=== PATIENT | male | born 1950 | race Caucasian/White ===

== ENCOUNTER 2018-04-06 09:00 | Inpatient (IN) ==
[2018-04-06 12:40] LABS: Basophils # (Auto) 0 K/mcL (0.0-0.3); Basophils % (Auto) 0.3 % (0.0-2.0); Eosinophils # (Auto) 0.3 K/mcL (0.0-0.7); Granulocytes % (Auto) 71.8 % (38.0-78.0); Lymphocytes # (Auto) 1.3 K/mcL (1.5-4.8); Lymphocytes % (Auto) 15.2 % (15.5-49.0); Mean Cell Volume 90.3 fL (80.0-100.0); Mean Corpuscular HGB Conc 33.3 g/dL (31.0-36.0); Monocytes # (Auto) 0.7 K/mcL (0.1-0.9); Monocytes % (Auto) 8.7 % (1.0-12.0); Platelet Count 208 K/mcL (140-440); RBC 5.27 M/mcL (4.50-5.90); Red Cell Distribution Width 14.2 % (11.5-14.5)
[2018-04-06 13:13] LABS: Appearance,Urine CLEAR; Bilirubin,Urine NEG (NEG); Color,Urine YELLOW; Glucose,Urine (UA) NEGATIVE (NEG); Leukocyte Esterase,Urine NEG /uL (NEG); Protein,Urine NEG (NEG); Specific Gravity,Urine 1.015 (1.000-1.035); Urine Blood NEG mg/dL (<0.03); Urobilinogen,Urine NEG (NEG)
[2018-04-06 13:19] LABS: Blood Urea Nitrogen 15 mg/dl (8-23)
[2018-04-10] MEDS ORDERED: ceFAZolin 1 GM VIAL IV SCH (06:00)
[2018-04-10] MEDS ORDERED: oxyCODONE 10 MG TAB.ER.12H PO SCH (06:00)
[2018-04-10] MEDS ORDERED: PREGABALIN 75 MG CAPSULE PO SCH (06:00)
[2018-04-10] MEDS ORDERED: 0.9 % SODIUM CHLORIDE 9 ML, KETOROLAC 30 MG, ROPIVACAINE HCL/PF 49.5 ML, EPINEPHrine 0.... IJ SCH (06:00)
[2018-04-10] MEDS ORDERED: ACETAMINOPHEN 500 MG TABLET PO SCH (06:00)
[2018-04-10] MEDS ORDERED: CELECOXIB 200 MG CAPSULE PO SCH (06:00)
[2018-04-10] MEDS ORDERED: IPRATROPIUM/ALBUTEROL 3 ML AMPUL.NEB NEB ONE (09:38)
[2018-04-10] MEDS ORDERED: DEXAMETHASONE 10 MG/ML VIAL IV ONE (10:00)
[2018-04-10] MEDS ORDERED: KETAMINE 100 MG/ML ML IV ONE (10:00)
[2018-04-10] MEDS ORDERED: ROPIVACAINE HCL/PF 20 ML VIAL IJ ONE (10:00)
[2018-04-10] MEDS ORDERED: GLYCOPYRROLATE 0.2 MG/ML VIAL IV ONE (10:00)
[2018-04-10] MEDS ORDERED: LIDOCAINE HCL/PF 100 MG/5 ML SYRINGE IV ONE (10:00)
[2018-04-10] MEDS ORDERED: PHENYLEPHRINE 10 MG/ML VIAL IV ONE (10:00)
[2018-04-10] MEDS ORDERED: TRANEXAMIC ACID 1,000 MG/10 ML VIAL IV ONE ×2 (10:00→11:32)
[2018-04-10] MEDS ORDERED: ONDANSETRON 4 MG/2 ML VIAL IV ONE (10:00)
[2018-04-10] MEDS ORDERED: MIDAZOLAM 5 MG/5 ML VIAL IV ONE (10:00)
[2018-04-10] MEDS ORDERED: ePHEDrine 50 MG/ML AMPUL IV ONE (10:00)
[2018-04-10] MEDS ORDERED: PROPOFOL 200 MG/20 ML VIAL IV ONE (10:00)
[2018-04-10] MEDS ORDERED: GENTAMICIN SULFATE 800 MG/20 ML VIAL IR ONE (10:39)
[2018-04-10] MEDS ORDERED: MEPERIDINE 25 MG/ML SYRINGE IV PRN (11:03)
[2018-04-10] MEDS ORDERED: IPRATROPIUM/ALBUTEROL 3 ML AMPUL.NEB NEB PRN (11:03)
[2018-04-10] MEDS ORDERED: FLUMAZENIL 0.1 MG/ML ML IV PRN (11:03)
[2018-04-10] MEDS ORDERED: ATROPINE SULFATE 0.4 MG/ML VIAL IV PRN (11:03)
[2018-04-10] MEDS ORDERED: METHOCARBAMOL 1,000 MG/10 ML VIAL IV PRN (11:03)
[2018-04-10] MEDS ORDERED: PROMETHAZINE 25 MG/ML VIAL IV PRN (11:03)
[2018-04-10] MEDS ORDERED: ONDANSETRON 4 MG/2 ML VIAL IV PRN ×2 (11:03→11:32)
[2018-04-10] MEDS ORDERED: diphenhydrAMINE 50 MG/ML VIAL IV PRN (11:03)
[2018-04-10] MEDS ORDERED: HYDROmorphone 2 MG/ML VIAL IV PRN ×2 (11:03→11:32)
[2018-04-10] MEDS ORDERED: ePHEDrine 50 MG/ML AMPUL IV PRN (11:03)
[2018-04-10] MEDS ORDERED: METOPROLOL TARTRATE 5 MG/5 ML VIAL IV PRN (11:03)
[2018-04-10] MEDS ORDERED: NALOXONE HCL 0.4 MG/ML VIAL IV PRN (11:03)
[2018-04-10] MEDS ORDERED: LACTATED RINGERS 1,000 ML IV SCH (11:15)
[2018-04-10] MEDS ORDERED: MAGNESIUM HYDROXIDE 30 ML ORAL.SUSP PO PRN (11:32)
[2018-04-10] MEDS ORDERED: TEMAZEPAM 15 MG CAPSULE PO PRN (11:32)
[2018-04-10] MEDS ORDERED: FLEETS ADULT ENEMA PR PRN (11:32)
[2018-04-10] MEDS ORDERED: ACETAMINOPHEN 325 MG TABLET PO PRN (11:32)
[2018-04-10] MEDS ORDERED: BISACODYL 10 MG SUPP.RECT PR PRN (11:32)
[2018-04-10] MEDS ORDERED: BENZOCAINE/MENTHOL 1 LOZENGE PO PRN (11:32)
[2018-04-10] MEDS ORDERED: POLYETHYLENE GLYCOL 3350 17 GM PACKET PO PRN (11:32)
--- NOTE | 2018-04-10 11:32 | Brief Operative Note ---
Date of procedure: 04/10/18 Pre-op diagnosis: left severe djd all comp Post-op diagnosis: same Procedure: left robotic tka Grafts/Implants: Yes Anesthesia: GETA Complications: none Surgeon: Angel Berger Industrial Hygiene Engineer: Kp Funez Estimated blood loss (cc): 100 Tourniquet Time (Minutes): 55 Specimens Removed/Pathology: none sent Condition: stable Disposition: PACU
[2018-04-10] MEDS ORDERED: 0.45 % SODIUM CHLORIDE 1,000 ML IV SCH (11:45)
--- NOTE | 2018-04-10 12:07 | Operative Note ---
DATE OF OPERATION: 04/10/2018 PREOPERATIVE DIAGNOSIS: Left knee severe degenerative arthritis. POSTOPERATIVE DIAGNOSIS: Left knee severe degenerative arthritis. PROCEDURE: Left total knee arthroplasty using the Greenpie robot. SURGEON: Angel Berger MD REIMBURSEMENT REPRESENTATIVE: Kp Funez PA-C. ANESTHESIA: General LMA anesthesia. COMPLICATIONS: None. TOTAL TOURNIQUET TIME: 55 minutes. COMPLICATIONS: None. ESTIMATED BLOOD LOSS: 100 mL DESCRIPTION OF PROCEDURE: The patient was brought to the operating room and put to sleep with general anesthesia. Once asleep, the patient had the left knee sterilely prepped and draped in the usual sterile fashion. A timeout was performed. We confirmed the operative side by initials, x-rays and consent form. Once all confirmed, we then proceeded with prepping the leg and placing Ioban over the skin. We made a midline incision, a mid vastus approach performed. Once this was done, we then exposed the joint showing severe arthritis in all three compartments. Spurs were removed. Pins above and below the knee were placed after predrilling the tibia. The arrays were placed and we registered the center of hip rotation medial and lateral malleolus intra-articular pins; 30 points on the femur and the tibia were registered and then we balanced the knee at 90 degrees and at 15 degrees. The implant was adjusted for the patient's anatomy and tightness. We irrigated thoroughly and then brought in the robot. Once the robot had been brought in we made the cut starting with the tibia, then the femoral cuts were. We removed excess bony fragments and injected the capsule posteriorly, and then removed osteophytes posteriorly. Once done, we then preserved the posterior cruciate ligament and placed a tibial baseplate, setting rotation using the robot. We then placed the femoral component and then trialled a size 9, a size 11 and a 13. The 11 was the most appropriate size, according to the robot. This brought the patient back 2-4 degrees of extension, 6 degrees of varus. We irrigated thoroughly and we then placed the patella in extension. The knee was in extension. We then cut the patella from a 26 mm total thickness down to approximately 15. We then placed 38 patellar oval button. This seemed to fit very nicely and covered the kneecap very well. We irrigated. We then cemented into place the above-mentioned sizes which included a size 5 femur and size 5 tibial baseplate, and 38-mm patellar button. There was no complication. The patient tolerated this well. Note that the closure was done with #1 Stratafix x2. Skin was closed with Stratafix and adhesive closure. RBH:bert Job ID: [id number] Doc ID: [id number] Angel Berger MD
--- NOTE | 2018-04-10 12:27 | XRay Report ---
CLINICAL INFORMATION: Left knee replacement TECHNIQUE: AP and stable lateral portable left knee COMPARISON: None. FINDINGS: Status post left total knee arthroplasty. Femoral and tibial components are in anatomic positions. There is postsurgical intra-articular and soft tissue gas. IMPRESSION: Status post left total knee arthroplasty Interpreted and Authenticated by: Crow Mackenzie 04/10/18
[2018-04-10] MEDS: KETOROLAC 15 MG/ML VIAL IV SCH ×3 (13:06→23:48)
[2018-04-10] MEDS: 0.9 % SODIUM CHLORIDE 10 ML SYRINGE IV SCH ×2 (13:30→22:00)
[2018-04-10] MEDS: ceFAZolin 1 GM VIAL IV SCH (17:42)
[2018-04-10] MEDS: oxyCODONE/APAP 5/325MG TABLET PO PRN (20:41)
[2018-04-10] MEDS: DOCUSATE SODIUM 100 MG CAPSULE PO SCH (20:41)
[2018-04-10] MEDS: ASPIRIN 325 MG ENTERIC COATED TABLET PO SCH (20:41)
[2018-04-10] MEDS ORDERED: SENNOSIDES 1 TABLET PO SCH (21:00)
[2018-04-11] MEDS: ceFAZolin 1 GM VIAL IV SCH (02:49)
[2018-04-11] MEDS: 0.9 % SODIUM CHLORIDE 10 ML SYRINGE IV SCH ×2 (03:01→05:32)
[2018-04-11] MEDS: oxyCODONE/APAP 5/325MG TABLET PO PRN ×2 (04:12→08:23)
[2018-04-11] MEDS: KETOROLAC 15 MG/ML VIAL IV SCH ×2 (05:31→12:08)
--- NOTE | 2018-04-11 07:44 | Orthopedic Progress Note ---
Subjective Patient information: Note initiated : 04/11/18 at 7:43 am Service Date, if different from initiated Date: [] Patient: Sukh Mercedes 67 y/o M admitted on 04/10/18 for Left Chris Total Knee Arthroplasty. Chief Complaint: [Pt is stable this morning on post operative day 1 without any significant concerns or complaints. Patients vital signs have remained stable. Patients dressing is dry and is grossly intact from a neurovascular and motor standpoint. Patients 10 point ROS is otherwise negative. ] Objective Vital signs: Vital Signs Temp Pulse Resp BP Pulse Ox 04/11/18 07:04 98.3 F 57 L 15 109/64 95 04/11/18 02:57 98.2 F 56 L 16 109/59 94 04/11/18 00:00 98.5 F 69 16 114/68 96 04/10/18 20:59 97 04/10/18 20:00 98.8 F 70 16 121/68 94 04/10/18 15:32 98 04/10/18 14:40 64 16 113/67 100 04/10/18 14:10 64 16 123/69 100 04/10/18 13:40 98 F 69 134/73 98 04/10/18 13:25 71 16 126/72 98 04/10/18 13:10 71 16 96 04/10/18 12:55 98 F 73 18 145/81 94 04/10/18 12:40 97.8 F 80 18 94 04/10/18 12:29 97.4 F 71 13 113/50 95 04/10/18 12:19 85 13 103/54 95 04/10/18 12:04 75 11 L 114/64 96 04/10/18 12:00 70 11 L 114/64 96 04/10/18 11:55 73 12 112/66 96 04/10/18 11:49 99.2 F H 70 16 115/58 97 04/10/18 08:27 98.2 F 18 158/87 94 Intake and Output 04/10/18 04/11/18 04/11/18 21:59 05:59 13:59 Intake Total 640 / 640 1960 / 1960 360 / 360 Output Total 550 / 550 200 / 200 Balance 90 / 90 1760 / 1760 360 / 360 Intake: IV 1000 / 1000 Oral 640 / 640 960 / 960 360 / 360 Output: Urine Catheter Amount 550 / 550 Void Amount 200 / 200 Other: Meal Dinner Percent of Meal Consumed 100% Feeding Ability Independent Urine Appearance Clear Clear Urine Color Bright Yellow Straw Urine Odor Normal Normal Stool Color Brown Stool Consistency Normal for Patient Soft # Voids 1 Weight 231 lb 8 oz Intake & Output: Intake & Output 04/10/18 04/11/18 04/11/18 21:59 05:59 13:59 Intake Total 640 / 640 1960 / 1960 360 / 360 Output Total 550 / 550 200 / 200 Balance 90 / 90 1760 / 1760 360 / 360 Weight 231 lb 8 oz Intake: IV 1000 / 1000 Oral 640 / 640 960 / 960 360 / 360 Output: Urine Catheter Amount 550 / 550 Void Amount 200 / 200 Other: Meal Dinner Percent of Meal Consumed 100% Feeding Ability Independent Urine Appearance Clear Clear Urine Color Bright Yellow Straw Urine Odor Normal Normal Stool Color Brown Stool Consistency Normal for Patient Soft # Voids 1 Incision: Yes healing Incision clean and dry: Yes Dressing: Yes clean Neurological exam IM: Yes motor sensory intact, Yes neurovascular intact Extremities exam IM: Yes Foot pink and warm, Yes neurovascular intact - Labs CBC & BMP: 04/11/18 04:16 04/06/18 09:58 Labs: 04/11/18 04/06/18 04:16 09:58 Hgb 15.8 Hct 40.3 L 47.6 Assessment and Plan (1) Hx of total knee arthroplasty The patient has been educated regarding dressing care, Physical Therapy recommendations, home exercises, restrictions, and follow up appointments. The patient has had all necessary DME prescribed. The patient has remained relatively stable during their hospital course. Leave Dermabond patch intact until followup Status: Acute
--- NOTE | 2018-04-11 07:46 | Discharge Summary ---
Ortho Discharge - TKA - Patient Instructions Diet: Regular Diet Activity: activity as tolerated, weight bearing as tolerated Total Knee Protocol: For Total Knee: Start ROM BRODERICK with stationary bike or rocking chair. Work on gaining full extension of knee. Posterior dislocation precautions provided. Hip abductor strengthening and gait training instructions provided. Apply Cryocuff as instructed. Dressing Care: May shower in 2 days Additional Instructions: CPM for home use. - Problem Maintenance (1) Hx of total knee arthroplasty Status: Acute - Follow Up Plan Follow Up Appointments: Kp Funez PA-C [Physician Manager Trainee] - 04/25/18 10:00 am Disposition: Home, Self-Care Prognosis: Good Rehab Potential: Good I certify that the patient requires SNF services: No Overall status at discharge: patient is progressing back to baseline - Orders For Discharge Prescriptions: Aspirin [Ecotrin] 325 mg PO BID #60 tab.ec Docusate Sodium [Colace] 100 mg PO BID #60 cap oxyCODONE/APAP [Percocet 5-325 mg] 1 - 2 tab PO Q4HP PRN #75 tab PRN Reason: Pain Level 3-6
[2018-04-11] MEDS: DOCUSATE SODIUM 100 MG CAPSULE PO SCH (08:23)
[2018-04-11] MEDS: ASPIRIN 325 MG ENTERIC COATED TABLET PO SCH (08:23)
== END 2018-04-11 12:30 | disposition home or self-care (01) | DRG 470 ==
LOC: MEDSUR 04-10 07:53
PROVIDERS: ADMIT Orthopaedic Surgery; ATTEND Orthopaedic Surgery
CPT/HCPCS: 62322; 97161; C1713; C1776; J0171; J0690; J1100; J1580; J1885; J2001; J2250; J2370; J2405; J2795; J7050; J7120; J7620; J7620-GY